=== PATIENT | female | born 2000 | race African-American/Black ===

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

== ENCOUNTER 2024-05-07 14:30 | Emergency (ER) | payer SELFPAY ==
[2024-05-07 14:37] VITALS: BP 115/76; PULSE 104; RESP 18; TEMP 98.1; BMI 24.9
[2024-05-07] MEDS ORDERED: LIDOCAINE 2.5%/PRILOCAINE 2.5% (5 Gram/TUBE) TP ONE (15:25)
[2024-05-07] MEDS ORDERED: ACETAMINOPHEN 500 MG TABLET (FP) ONE (15:25)
[2024-05-07] MEDS: LIDOCAINE 2.5%/PRILOCAINE 2.5% (5 Gram/TUBE) TP ONE (15:30)
[2024-05-07] MEDS: ACETAMINOPHEN 500 MG TABLET (FP) PO ONE (15:30)
== END 2024-05-07 17:15 | disposition home or self-care (01) ==
LOC: JERFT 14:30
PROC: 0J990ZZ Drainage of Buttock Subcutaneous Tissue and Fascia, Open Approach (ICD-10-PCS; principal; 2024-05-07)
DX: K61.0 Anal abscess (principal)
CPT/HCPCS: 99283-25

== ENCOUNTER 2024-05-09 17:16 | Emergency (ER) | payer SELFPAY ==
[2024-05-09 18:05] VITALS: BP 109/70; PULSE 89; RESP 18; TEMP 98.3; BMI 25.7
== END 2024-05-09 18:35 | disposition home or self-care (01) ==
LOC: JERFT 17:16
DX: L02.31 Cutaneous abscess of buttock (principal); Z48.01 Encounter for change or removal of surgical wound dressing
CPT/HCPCS: 99283-25